=== PATIENT | female | born 1975 | race Two or more races ===

== ENCOUNTER 2017-12-18 11:07 | Emergency (ER) | payer OTHER ==
[~2017-12-18] VITALS: Ht 167.6 cm; Wt 81.6 kg
--- NOTE | 2017-12-18 11:30 | NUR ---
Pt to ed dt fever chills nausea x 4 days. vss
[2017-12-18] MEDS ORDERED: ONDANSETRON 4 MG TAB.RAPDIS SL STA (11:44)
[2017-12-18] MEDS ORDERED: ACETAMINOPHEN ES 500 MG TABLET ONE (11:47)
[2017-12-18] MEDS ORDERED: KETOROLAC TROMETHAMINE INJ 30 MG/ML VIAL ONE (11:47)
[2017-12-18] MEDS ORDERED: ONDANSETRON 4 MG TAB.RAPDIS ONE (11:56)
[2017-12-18] MEDS ORDERED: ACETAMINOPHEN 325 MG TABLET PO ONE ×2 (12:00)
[2017-12-18] MEDS ORDERED: IV NS 0.9% 1,000 ML BAG IV ONE (12:00)
[2017-12-18] MEDS ORDERED: KETOROLAC TROMETHAMINE INJ 30 MG/ML VIAL IV ONE (12:00)
[2017-12-18 13:07] VITALS: BP 112/70
--- NOTE | 2017-12-18 13:08 | NUR ---
Patient discharged to home in stable condition. Written and verbal after care instructions given. Patient verbalizes understanding of instruction.IV removed. Catheter intact and site benign. Pressure and 4x4 applied to site. No bleeding noted.
== END 2017-12-18 13:08 | disposition home or self-care (01) ==
LOC: ER 11:12
DX: J11.1 Influenza due to unidentified influenza virus with other respiratory manifestations (principal)
CPT/HCPCS: 71045; 84703; 96361; 96374; 99285; A4606; J1885; J7030; Q0162; Z7610

== ENCOUNTER 2018-06-22 12:40 | Emergency (ER) | payer OTHER ==
[~2018-06-22] VITALS: Ht 160 cm; Wt 65.8 kg
[2018-06-22 12:49] VITALS: BP 125/68
--- NOTE | 2018-06-22 13:08 | NUR ---
BIB SELF COMPLAINING OF LT HAND PAIN FROM TOUCHING AN ELECTRICAL HOT STOVE EARLIER TODAY. REDNESS AND SWELLING PRESENT. 1010 PAIN. NO OTHER COMPLAINTS. VSS. NAD. AWAITING MD ORDERS.
--- NOTE | 2018-06-22 13:10 | NUR ---
CARLENE MACDONALD AT BEDSIDE FOR EVAL
[2018-06-22] MEDS ORDERED: HYDROCODONE/APAP 5/325MG 1 EACH TABLET ONE (13:27)
[2018-06-22] MEDS ORDERED: IBUPROFEN 600 MG TABLET PO ONE ×2 (13:27→13:30)
[2018-06-22] MEDS ORDERED: HYDROCODONE/APAP 5/325MG 1 EACH TABLET PO ONE (13:30)
--- NOTE | 2018-06-22 13:54 | NUR ---
Patient is resting comfortably in bed. Easily aroused. VSS. SAFETY MEASURES IN PLACE. CALL LIGHT WITHIN REACH.
[2018-06-22] MEDS ORDERED: SILVER SULFADIAZINE CREAM 25 GM TUBE ONE (13:58)
[2018-06-22] MEDS ORDERED: SILVER SULFADIAZINE CREAM 25 GM TUBE TP ONE (14:00)
== END 2018-06-22 14:21 | disposition home or self-care (01) ==
LOC: ER 12:41
DX: T23.202A Burn of second degree of left hand, unspecified site, initial encounter (principal); X15.0XXA Contact with hot stove (kitchen), initial encounter; Y93.89 Activity, other specified; Y92.89 Other specified places as the place of occurrence of the external cause; Y99.8 Other external cause status
CPT/HCPCS: A4606; A6402; Z7610

== ENCOUNTER 2018-11-22 07:54 | Emergency (ER) | payer OTHER ==
[~2018-11-22] VITALS: Ht 160 cm; Wt 80.3 kg
[2018-11-22 07:58] VITALS: BP 124/76
[2018-11-22] MEDS ORDERED: TETRACAINE HCL/PF 0.5% UD 2 ML BOTTLE ONE ×2 (08:20→08:30)
[2018-11-22] MEDS ORDERED: FLUORESCEIN SODIUM OPHTH 1 EA STRIP ONE ×2 (08:21→08:30)
[2018-11-22] MEDS ORDERED: FLUORESCEIN SODIUM OPHTH 1 EA STRIP OP ONE (08:30)
[2018-11-22] MEDS ORDERED: predniSONE 20 MG TABLET PO ONE (08:30)
[2018-11-22] MEDS ORDERED: TETRACAINE HCL/PF 0.5% UD 2 ML BOTTLE OP ONE (08:30)
[2018-11-22] MEDS ORDERED: CEPHALEXIN MONOHYDRATE 500 MG CAPSULE PO ONE ×2 (08:30→08:36)
[2018-11-22] MEDS ORDERED: predniSONE 20 MG TABLET ONE (08:36)
[2018-11-22] MEDS ORDERED: LORATADINE 10 MG TABLET ONE (08:37)
--- NOTE | 2018-11-22 08:47 | NUR ---
For discharge- ACI given Home ambulatory Stable
[2018-11-22] MEDS ORDERED: LORATADINE 10 MG TABLET PO SCH (09:00)
== END 2018-11-22 08:49 | disposition home or self-care (01) ==
LOC: ER 07:57
DX: H05.222 Edema of left orbit (principal); E78.00 Pure hypercholesterolemia, unspecified
CPT/HCPCS: A4606; Z7610

== ENCOUNTER 2019-10-01 22:26 | Emergency (ER) | payer OTHER ==
[~2019-10-01] VITALS: Ht 160 cm; Wt 81.6 kg
--- NOTE | 2019-10-01 22:40 | NUR ---
C/O PALPITAIONS FOR 10 DAYS, DENIES CHEST PAIN TO ER BED 4 AWAITING [facility] EVAL
--- NOTE | 2019-10-01 23:03 | NUR ---
Patient discharged to home in stable condition. Written and verbal after care instructions given. Patient verbalizes understanding of instruction.
[2019-10-01 23:04] VITALS: BP 124/68
== END 2019-10-01 23:05 | disposition home or self-care (01) ==
LOC: ER 22:26
DX: F41.9 Anxiety disorder, unspecified (principal); E78.00 Pure hypercholesterolemia, unspecified

== ENCOUNTER 2022-03-31 11:24 | Emergency (ER) | payer OTHER ==
[~2022-03-31] VITALS: Ht 160 cm; Wt 90.7 kg
--- NOTE | 2022-03-31 11:30 | NUR ---
BIB SELF C/O COUGH X 1 MONTH AND L EYE PAIN "I THINK I HAVE EYE INFECTION." PT IS AFEBRILE, VITALS ARE WITHIN NORMAL LIMITS. AWAITING MD SPRING.
[2022-03-31 11:31] VITALS: BP 116/73
--- NOTE | 2022-03-31 11:32 | NUR ---
AT BEDSIDE FOR EVAL.
[2022-03-31] MEDS ORDERED: BENZ-13 PO (11:36)
[2022-03-31] MEDS ORDERED: GENT5DRO4 LEFTEYE (11:36)
[2022-03-31] MEDS ORDERED: HYDR28.32 TP (11:36)
--- NOTE | 2022-03-31 11:43 | NUR ---
Patient discharged to home in stable condition. Written and verbal after care instructions given. Patient verbalizes understanding of instruction.
== END 2022-03-31 11:43 | disposition home or self-care (01) ==
LOC: ER 11:30
DX: H00.14 Chalazion left upper eyelid (principal); L30.9 Dermatitis, unspecified; R05.9 Cough, unspecified; E78.00 Pure hypercholesterolemia, unspecified; Z79.899 Other long term (current) drug therapy

== ENCOUNTER 2022-07-15 20:05 | Emergency (ER) | payer OTHER ==
[~2022-07-15] VITALS: Ht 162.6 cm; Wt 80.7 kg
[~2022-07-15 20:05] MED LIST: BENZ-13 PO; GENT5DRO4 LEFTEYE; HYDR28.32 TP
[2022-07-15 20:20] VITALS: BP 129/74
[2022-07-15] MEDS ORDERED: AZIT250T13 PO (21:26)
--- NOTE | 2022-07-15 21:34 | NUR ---
Patient discharged to home in stable condition. Written and verbal after care instructions given. Patient verbalizes understanding of instruction.
== END 2022-07-15 21:34 | disposition home or self-care (01) ==
LOC: ER 20:27
DX: U07.1 COVID-19 (principal); E78.00 Pure hypercholesterolemia, unspecified; Z79.899 Other long term (current) drug therapy
CPT/HCPCS: 71045-TC